=== PATIENT | female | born 1985 | race American Indian/Alaskan Native ===

== ENCOUNTER 2017-04-09 23:51 | Emergency (ER) | payer SELFPAY ==
[2017-04-10 00:35] LABS: Basophils % (Auto) 0.4 % (0.0-1.8); Eosinophils % (Auto) 1.6 % (0.0-4.3); Hematocrit 38.5 % (30.3-42.9); Hemoglobin 12.7 gm/dl (10.1-14.3); Mean Corpuscular HGB Conc 33 % (30-34); Mean Corpuscular Hemoglobin 29 pg (28-32); Mean Corpuscular Volume 87 fl (79-97); Platelet Count 270 K/mm3 (140-440); Red Blood Count 4.43 M/mm3 (3.65-5.03); Red Cell Distribution Width 14.3 % (13.2-15.2); White Blood Count 9.7 K/mm3 (4.5-11.0)
[2017-04-10 00:57] LABS: BUN/Creatinine Ratio 16.66; Blood Urea Nitrogen 10 mg/dL (7-17); Calcium 8.7 mg/dL (8.4-10.2); Carbon Dioxide 25 mmol/L (22-30); Glucose 103 mg/dL (65-100)
[2017-04-10 00:58] LABS: Anion Gap 20 mmol/L; Chloride 104.4 mmol/L (98-107); Potassium 3.8 mmol/L (3.6-5.0); Sodium 146 mmol/L (137-145)
--- NOTE | 2017-04-10 01:25 | XRay Report ---
FINAL REPORT EXAM: XR CHEST ROUTINE 2V HISTORY: CP, SOB, Upper Resp Inf, Preg Test ordered COMPARISON: None available. FINDINGS:: Frontal and lateral views of the chest obtained. Cardiac silhouette is within normal limits. No focal consolidation or effusion. No pneumothorax. Visualized bony thorax is grossly intact. IMPRESSION:: No acute findings.
[2017-04-10] MEDS ORDERED: TYLENOL/CODEINE PO ONE (05:46)
[2017-04-10] MEDS ORDERED: PROVENTIL IH ONE (05:46)
[2017-04-10] MEDS ORDERED: DELTASONE PO ONE (05:54)
--- NOTE | 2017-04-10 05:54 | Emergency Department Report ---
HPI - General Chief Complaint: Upper Respiratory Infection Time Seen by Provider: 04/10/17 05:27 - HPI HPI: 31-year-old female presents to ED complaining of nonproductive dry cough for the past 2 days. Patient states cough is intermittent and has gotten worse and causing chest pain with coughing. Patient states she had an episode of shortness of breath from coughing so much. She denies any fevers/chills/nausea/ vomiting symptoms and the pain/history of asthma/trauma/sick contact ED Past Medical Hx - Past Medical History Previous Medical History?: Yes Additional medical history: Obesity - Surgical History Past Surgical History?: No - Social History Smoking Status: Current Every Day Smoker Substance Use Type: None - Medications Home Medications: Home Medications Medication Instructions Recorded Confirmed Last Taken Type Acetaminophen/Codeine [Tylenol #3] 1 tab PO Q6H PRN #15 tab 11/28/13 Unknown Rx Methocarbamol [Robaxin] 750 mg PO Q8H PRN #21 tablet 11/28/13 Unknown Rx Naproxen Sodium (Nf) [Anaprox DS] 550 mg PO BID PRN #14 tablet 11/28/13 Unknown Rx ALBUTEROL Inhaler [ProAir HFA 2 puff IH QID PRN #1 pump 04/10/17 Unknown Rx Inhaler] Benzonatate [Tessalon Perles] 100 mg PO Q8HR #21 capsule 04/10/17 Unknown Rx Promethazine /Codeine 5 ml PO Q6H PRN #80 ml 04/10/17 Unknown Rx [Phenergan/Codeine 6.25-10 mg/5Ml] ED Review of Systems ROS: Stated complaint: CHEST PAIN Other details as noted in HPI Constitutional: denies: chills, fever Eyes: denies: eye pain, eye discharge, vision change ENT: denies: ear pain, throat pain Respiratory: cough. denies: shortness of breath, wheezing Cardiovascular: denies: chest pain, palpitations Endocrine: no symptoms reported Gastrointestinal: denies: abdominal pain, nausea, diarrhea Genitourinary: denies: urgency, dysuria, discharge Musculoskeletal: denies: back pain, joint swelling, arthralgia Skin: denies: rash, lesions Neurological: denies: headache, weakness, paresthesias Psychiatric: denies: anxiety, depression Hematological/Lymphatic: denies: easy bleeding, easy bruising Physical Exam - Physical Exam Vital Signs: Vital Signs 04/09/17 04/10/17 04/10/17 23:54 04:49 04:50 Temperature 99.1 F 99.2 F Pulse Rate 102 H 96 H Respiratory 20 18 18 Rate Blood Pressure 138/93 125/85 [Right] O2 Sat by Pulse 100 94 94 Oximetry 04/10/17 05:00 Temperature Pulse Rate Respiratory Rate Blood Pressure [Right] O2 Sat by Pulse 98 Oximetry Physical Exam: GENERAL: Alert and oriented x3, no apparent distress, Normal Gait, atraumatic. HEAD: Head is normocephalic and a-traumatic. EYES: Extra ocular muscles are intact. Pupils are equal, round, and reactive to light and accommodation. EARS: symetrical, atraumatic, non tender, ear canal clear and moderate cerumen, tympanic membrance non inflamed. gross auditory nml bilaterally. NOSE: Nose symetrical, Nontender,Nares appeared normal. MOUTH:Mouth is well hydrated and without lesions. Tonsils nonerythematous or swollen, Uvula midline, Tongue not elevated. Mucous membranes are moist. Posterior pharynx clear, no exudate or lesions. Patent airways. NECK: Supple. Non edematous, No lymphadenopathy or thyromegaly. No C-spine tenderness LUNGS: Symetrical with respiration, No wheezing, no rales or crackles, CTAB. No use of accessory muscles HEART: S1, S2 present, regular rate and rhythm without murmur, no rubs, no gallops. Non tender to palpation SKIN: Warm and dry, No lesions, No ulceration or induration present. ED Course Vital Signs 04/09/17 04/10/17 04/10/17 23:54 04:49 04:50 Temperature 99.1 F 99.2 F Pulse Rate 102 H 96 H Respiratory 20 18 18 Rate Blood Pressure 138/93 125/85 [Right] O2 Sat by Pulse 100 94 94 Oximetry 04/10/17 05:00 Temperature Pulse Rate Respiratory Rate Blood Pressure [Right] O2 Sat by Pulse 98 Oximetry ED Medical Decision Making - Lab Data Result diagrams: 04/10/17 00:10 04/10/17 00:10 Laboratory Last Values WBC 9.7 K/mm3 (4.5-11.0) 04/10/17 00:10 RBC 4.43 M/mm3 (3.65-5.03) 04/10/17 00:10 Hgb 12.7 gm/dl (10.1-14.3) 04/10/17 00:10 Hct 38.5 % (30.3-42.9) 04/10/17 00:10 MCV 87 fl (79-97) 04/10/17 00:10 MCH 29 pg (28-32) 04/10/17 00:10 MCHC 33 % (30-34) 04/10/17 00:10 RDW 14.3 % (13.2-15.2) 04/10/17 00:10 Plt Count 270 K/mm3 (140-440) 04/10/17 00:10 Lymph % (Auto) 27.0 % (13.4-35.0) 04/10/17 00:10 [place]imes % (Auto) 6.5 % (0.0-7.3) 04/10/17 00:10 Eos % (Auto) 1.6 % (0.0-4.3) 04/10/17 00:10 Baso % (Auto) 0.4 % (0.0-1.8) 04/10/17 00:10 Lymph # 2.6 K/mm3 (1.2-5.4) 04/10/17 00:10 Grimes # 0.6 K/mm3 (0.0-0.8) 04/10/17 00:10 Eos # 0.2 K/mm3 (0.0-0.4) 04/10/17 00:10 Baso # 0.0 K/mm3 (0.0-0.1) 04/10/17 00:10 Seg Neutrophils % 64.5 % (40.0-70.0) 04/10/17 00:10 Seg Neutrophils # 6.3 K/mm3 (1.8-7.7) 04/10/17 00:10 VBG pH 7.395 (7.320-7.420) 04/10/17 00:10 Sodium 146 mmol/L (137-145) H 04/10/17 00:10 Potassium 3.8 mmol/L (3.6-5.0) 04/10/17 00:10 Chloride 104.4 mmol/L (98-107) 04/10/17 00:10 Carbon Dioxide 25 mmol/L (22-30) 04/10/17 00:10 Anion Gap 20 mmol/L 04/10/17 00:10 BUN 10 mg/dL (7-17) 04/10/17 00:10 Creatinine 0.6 mg/dL (0.7-1.2) L 04/10/17 00:10 Estimated GFR > 60 ml/min 04/10/17 00:10 BUN/Creatinine Ratio 16.66 % 04/10/17 00:10 Glucose 103 mg/dL (65-100) H 04/10/17 00:10 Calcium 8.7 mg/dL (8.4-10.2) 04/10/17 00:10 Troponin T < 0.010 ng/mL (0.00-0.029) 04/10/17 00:10 HCG, Qual Negative (Negative) 04/10/17 00:10 - EKG Data EKG shows normal: sinus rhythm - EKG Data 04/10/17 06:16 Nonspecific T-wave changes NosignofSTEMI - Medical Decision Making 31-year-old female presents with acute bronchitis Patient received breathing treatment of albuterol and 80, prednisone, Tylenol with Codeine Discussed the patient to follow up with primary care physician. Patient reports feeling much better after breathing treatment and medications. Discussed home medication of cough suppressants albuterol. Vital signs are normal patient is in no acute distress She is alert and oriented 3 understands instructions given. Critical care attestation.: If time is entered above; I have spent that time in minutes in the direct care of this critically ill patient, excluding procedure time. ED Disposition Clinical Impression: Bronchitis Disposition: DC-01 TO HOME OR SELFCARE Is pt being admited?: No Does the pt Need Aspirin: No Condition: Stable Instructions: Chronic Bronchitis (ED), Acute Bronchitis (ED) Prescriptions: ALBUTEROL Inhaler [ProAir HFA Inhaler] 2 puff IH QID PRN #1 pump PRN Reason: Shortness Of Breath Benzonatate [Tessalon Perles] 100 mg PO Q8HR #21 capsule Promethazine /Codeine [Phenergan/Codeine 6.25-10 mg/5Ml] 5 ml PO Q6H PRN #80 ml PRN Reason: cough Referrals: PRIMARY CARE,MD [Primary Care Provider] - 3-5 Days [facility] [Outside] - 3-5 Days [facility] [Outside] - 3-5 Days [facility] [Outside] - 3-5 Days Forms: Accompanied Note, Work/School Release Form(ED) Time of Disposition: 06:22
[2017-04-10 06:54] VITALS: BP 112/60
== END 2017-04-10 06:53 | disposition home or self-care (01) ==
LOC: ED 23:51
DX: J40 Bronchitis, not specified as acute or chronic (principal); F17.200 Nicotine dependence, unspecified, uncomplicated
CPT/HCPCS: 36415; 71020; 80048; 82805; 84484; 84703; 85025; 93005; 93010; 94640; 99284; J7512